=== PATIENT | male | born 2000 | race Caucasian/White ===

== ENCOUNTER 2025-01-13 10:19 | Inpatient (IN) | payer OTHER ==
[~2025-01-13] VITALS: Ht 177.8 cm; Wt 117.2 kg
[2025-01-13 11:47] LABS: BASOPHILS ABSOLUTE AUTO 0.05 K/mm3 (0.00-0.23); BASOPHILS PERCENT AUTO 0 % (0-2); EOSINOPHILS ABSOLUTE AUTO 0.06 K/mm3 (0.00-0.68); EOSINOPHILS PERCENT AUTO 0 % (0-6); Hematocrit 40.3 % (37.0-53.0); Hemoglobin 13.6 g/dL (13.5-17.5); IMMATURE GRAN ABSOLUTE AUTO 0.08 K/mm3 (0.00-0.10); IMMATURE GRAN PERCENT AUTO 0 % (0-1); LYMPHOCYTES ABSOLUTE AUTO 1.52 K/mm3 (0.84-5.20); LYMPHOCYTES PERCENT AUTO 8 % (21-46); MONOCYTES ABSOLUTE AUTO 1.69 K/mm3 (0.16-1.47); MONOCYTES PERCENT AUTO 9 % (4-13); Mean Corpuscular HGB Conc 33.7 g/dL (31.5-36.5); Mean Corpuscular Volume 88 fL (80-100); NEUTROPHILS ABSOLUTE AUTO 15.74 K/mm3 (1.96-9.15); NEUTROPHILS PERCENT AUTO 82 % (41-73); NRBC ABSOLUTE 0.00 K/mm3 (0.00-0.02); NRBC Auto 0.0 /100 WBC (0.0-0.2); Platelet Count 203 K/mm3 (150-400); RDW Coefficient Variation 13.1 % (11.7-14.2); RDW Standard Deviation 41.9 fL (35.1-46.3)
[2025-01-13 11:58] LABS: Alanine Aminotransfer (ALT/SGP 22.0 U/L (12-78); Albumin, Blood 3.8 g/dL (3.4-5.0); Albumin/Globulin Ratio 1.1 (0.8-1.8); Anion Gap 8.0 mmol/L (3-11); Aspartate Aminotrans (AST/SGOT 9.0 U/L (12-37); Bilirubin, Total 0.7 mg/dL (0.1-1.0); Blood Urea Nitrogen 11.0 mg/dL (8-24); CO2, Blood 27.0 mmol/L (21-32); Calcium, Blood 9.1 mg/dL (8.5-10.1); Chloride, Blood 105.0 mmol/L (98-108); Creatinine, Blood 0.75 mg/dL (0.60-1.20); Globulin, Blood 3.5 g/dL (2.2-4.0); Glucose, Blood 127.0 mg/dL (70-99); Potassium, Blood 3.8 mmol/L (3.5-5.5); Sodium, Blood 136.0 mmol/L (136-145); Total Protein, Blood 7.3 g/dL (6.4-8.2)
[2025-01-13] MEDS ORDERED: Morphine Sulfate 4 MG/1 ML Injection IV ONE (12:50)
[2025-01-13] MEDS ORDERED: Vancomycin HCL 2,000 MG in NS 520 ML IV ONE (12:50)
[2025-01-13] MEDS ORDERED: FLU VACC TS2025-26(6MOS UP)/PF 45 MCG/0.5 ML SYRINGE IM SCH (14:20)
[2025-01-13] MEDS ORDERED: Vancomycin (Pharmacy Consult) IV SCH (14:25)
[2025-01-13] MEDS ORDERED: Polyethylene Glycol 3350 17 gm PO PRN (14:25)
[2025-01-13 16:40] VITALS: BP 149/85
--- NOTE | 2025-01-13 16:51 | NUR ---
ADMISSION NOTE: PATIENT ARRIVED TO THE UNIT AT 1645 VIA WHEELCHAIR. ALERT AND ABLE TO SELF TRANSFER ONTO THE BED. SETTLED IN THE ROOM, IV CHECKED, WOUND ASSESSED/PHOTO OBTAINED, AND ASSESSMENT COMPLETED. HE IS IN BED, CALL LIGHT WITHIN REACH, NO SIGNS OR SYMPTOMS OF DISTRESS, PLAN OF CARE ONGOING.
[2025-01-13 19:29] VITALS: BP 137/75
[2025-01-13] MEDS ORDERED: Docusate Sodium/Senna 1 Tab PO SCH (21:00)
[2025-01-13] MEDS ORDERED: Lactobacil 2-S.Thermo-Bifido 1 1 Cap PO SCH (21:00)
[2025-01-14 04:37] VITALS: BP 154/87
[2025-01-14 05:13] LABS: Hematocrit 38.7 % (37.0-53.0); Hemoglobin 12.8 g/dL (13.5-17.5); Mean Corpuscular HGB Conc 33.1 g/dL (31.5-36.5); Mean Corpuscular Volume 89 fL (80-100); NRBC ABSOLUTE 0.00 K/mm3 (0.00-0.02); NRBC Auto 0.0 /100 WBC (0.0-0.2); Platelet Count 180 K/mm3 (150-400); RDW Coefficient Variation 13.0 % (11.7-14.2); RDW Standard Deviation 42.4 fL (35.1-46.3)
[2025-01-14 06:04] LABS: Albumin, Blood 3.3 g/dL (3.4-5.0); Anion Gap 7 mmol/L (3-11); Blood Urea Nitrogen 9 mg/dL (8-24); CO2, Blood 27 mmol/L (21-32); Calcium, Blood 9.0 mg/dL (8.5-10.1); Chloride, Blood 108 mmol/L (98-108); Creatinine, Blood 0.72 mg/dL (0.60-1.20); Glucose, Blood 110 mg/dL (70-99); Magnesium, Blood 1.8 mg/dL (1.6-2.4); Phosphorus, Blood 3.0 mg/dL (2.5-4.9); Potassium, Blood 4.0 mmol/L (3.5-5.5); Sodium, Blood 138 mmol/L (136-145)
--- NOTE | 2025-01-14 06:42 | NUR ---
SHIFT SUMMARY: Pt is admitted for cellulitis and abscess of left inner thigh and is a full code. Is alert and able to make needs known. ADLs have been IND. on ISO for HX of MRSA with current open wound. Denies pain or discomfort when asked. Dressing to thigh is CDI.
[2025-01-14 07:21] VITALS: BP 142/82
[2025-01-14] MEDS ORDERED: Enoxaparin 40 MG/0.4 ML SYR SC SCH (09:00)
[2025-01-14 13:35] LABS: Vancomycin, Trough 9.7 ug/mL (5.0-10.0)
--- NOTE | 2025-01-14 16:52 | NUR ---
SHIFT SUMMARY: PATIENT RECEIVED WOUND CARE TODAY. NEW MARKING MADE FOR INCREASED REDNESS OF L INNER THIGH AND DATED. HOT TO TOUCH AND SWOLLEN. PATIENT STATES THAT IT FEELS BETTER TODAY. PATIENT RECEIVING ANTIBIOTICS AND PAIN MEDICATION NEEDED. HE IS IN HIS ROOM, PLAYING VIDEO GAMES, CALL LIGHT WITHIN REACH, NO SIGNS OR SYMPTOMS OF DISTRESS, PLAN OF CARE ONGOING. PENDING CULTURES.
[2025-01-14 16:56] VITALS: BP 147/104
[2025-01-14 19:33] VITALS: BP 158/93
[2025-01-15 05:34] VITALS: BP 121/75
[2025-01-15 06:42] LABS: BASOPHILS ABSOLUTE AUTO 0.05 K/mm3 (0.00-0.23); BASOPHILS PERCENT AUTO 1 % (0-2); EOSINOPHILS ABSOLUTE AUTO 0.30 K/mm3 (0.00-0.68); EOSINOPHILS PERCENT AUTO 3 % (0-6); Hematocrit 38.3 % (37.0-53.0); Hemoglobin 12.7 g/dL (13.5-17.5); IMMATURE GRAN ABSOLUTE AUTO 0.04 K/mm3 (0.00-0.10); IMMATURE GRAN PERCENT AUTO 0 % (0-1); LYMPHOCYTES ABSOLUTE AUTO 2.32 K/mm3 (0.84-5.20); LYMPHOCYTES PERCENT AUTO 21 % (21-46); MONOCYTES ABSOLUTE AUTO 1.15 K/mm3 (0.16-1.47); MONOCYTES PERCENT AUTO 11 % (4-13); Mean Corpuscular HGB Conc 33.2 g/dL (31.5-36.5); Mean Corpuscular Volume 90 fL (80-100); NEUTROPHILS ABSOLUTE AUTO 7.14 K/mm3 (1.96-9.15); NEUTROPHILS PERCENT AUTO 65 % (41-73); NRBC ABSOLUTE 0.00 K/mm3 (0.00-0.02); NRBC Auto 0.0 /100 WBC (0.0-0.2); Platelet Count 194 K/mm3 (150-400); RDW Coefficient Variation 13.0 % (11.7-14.2); RDW Standard Deviation 42.8 fL (35.1-46.3)
[2025-01-15 07:37] VITALS: BP 139/92
[2025-01-15] MEDS ORDERED: CLINDAMYCIN PHOSPHATE/D5W 50 ML IV SCH (13:48)
[2025-01-15 14:30] LABS: Vancomycin, Trough 14.3 ug/mL (5.0-10.0)
[2025-01-15] MEDS ORDERED: NS 250 ML IV PRN (14:40)
[2025-01-15 16:22] VITALS: BP 143/89
--- NOTE | 2025-01-15 17:48 | NUR ---
SHIFT SUMMARY PT A&OX4, VSS, AMB IND, TOLERATING PO, VOIDING, AND PAIN MANAGED PER EMAR. WOUND CARE/DRESSING CHANGE COMPLETED PER ORDER. REDNESS EXCEEDED BORDER, NEW BORDER DRAWN, NOTIFIED DURING AM ROUND. IV ABX INFUSED. BLOOD AND WOUND CULTURES PENDING. NO OTHER ACUTE CHANGES. CALL LIGHT WITHIN REACH AND PT ABLE TO MAKE NEEDS KNOWN.
[2025-01-15 19:28] VITALS: BP 149/89
--- NOTE | 2025-01-16 03:38 | NUR ---
SHIFT SUMMARY: AOX4. VSS. PT WOUND TO INNER THIGH IS C/D/I. CALL LIGHT IS WITHIN REACH. BED IS LOW AND LOCKED.
[2025-01-16 07:43] VITALS: BP 135/80
[2025-01-16 08:30] LABS: BASOPHILS ABSOLUTE AUTO 0.06 K/mm3 (0.00-0.23); BASOPHILS PERCENT AUTO 1 % (0-2); EOSINOPHILS ABSOLUTE AUTO 0.27 K/mm3 (0.00-0.68); EOSINOPHILS PERCENT AUTO 3 % (0-6); Hematocrit 38.7 % (37.0-53.0); Hemoglobin 12.9 g/dL (13.5-17.5); IMMATURE GRAN ABSOLUTE AUTO 0.03 K/mm3 (0.00-0.10); IMMATURE GRAN PERCENT AUTO 0 % (0-1); LYMPHOCYTES ABSOLUTE AUTO 1.71 K/mm3 (0.84-5.20); LYMPHOCYTES PERCENT AUTO 17 % (21-46); MONOCYTES ABSOLUTE AUTO 1.09 K/mm3 (0.16-1.47); MONOCYTES PERCENT AUTO 11 % (4-13); Mean Corpuscular HGB Conc 33.3 g/dL (31.5-36.5); Mean Corpuscular Volume 88 fL (80-100); NEUTROPHILS ABSOLUTE AUTO 6.73 K/mm3 (1.96-9.15); NEUTROPHILS PERCENT AUTO 68 % (41-73); NRBC ABSOLUTE 0.00 K/mm3 (0.00-0.02); NRBC Auto 0.0 /100 WBC (0.0-0.2); Platelet Count 222 K/mm3 (150-400); RDW Coefficient Variation 12.6 % (11.7-14.2); RDW Standard Deviation 40.8 fL (35.1-46.3)
[2025-01-16 09:01] LABS: Alanine Aminotransfer (ALT/SGP 26.0 U/L (12-78); Albumin, Blood 3.5 g/dL (3.4-5.0); Albumin/Globulin Ratio 1.0 (0.8-1.8); Anion Gap 5.0 mmol/L (3-11); Aspartate Aminotrans (AST/SGOT 17.0 U/L (12-37); Bilirubin, Total 0.4 mg/dL (0.1-1.0); Blood Urea Nitrogen 11.0 mg/dL (8-24); CO2, Blood 28.0 mmol/L (21-32); Calcium, Blood 9.1 mg/dL (8.5-10.1); Chloride, Blood 108.0 mmol/L (98-108); Creatinine, Blood 0.71 mg/dL (0.60-1.20); Globulin, Blood 3.6 g/dL (2.2-4.0); Glucose, Blood 91.0 mg/dL (70-99); Potassium, Blood 4.0 mmol/L (3.5-5.5); Sodium, Blood 137.0 mmol/L (136-145); Total Protein, Blood 7.1 g/dL (6.4-8.2)
--- NOTE | 2025-01-16 09:38 | NUR ---
NOTE PT REPORTS NO PAIN, ONLY WHERE IV HAS BLOWN. PT NOTICES REDNESS WORSENING ON THIGH. , ROUNDED ON PT, REPORTS PT NEEDS POWERGLIDE. AWARE IV VANCO DID NOT INFUSE THIS AM, DOC AWARE. PT REF LOVENOX THIS AM. STRU[employer]URAL [employer] WORKER HELPER NOTIFIED PT NEEDS POWERGLIDE. PT IN BED, BED IN LOWEST POSITION, CALLS APPROPRIATE CALL LIGHT IN REACH.
--- NOTE | 2025-01-16 13:44 | NUR ---
NOTE PT HAD CT OF THIGH TODAY. DR. ROJAS NOTIFIED OF RESULTS. PT HAS POWERGLIDE IN DOROTHY PUT IN BY RENETTA FITZGERALD RN. DR. ROJAS REPORTED "PT WILL CONTINUE WITH IV ANTIBIOTICS, OUTLINE CELLULITIS PLEASE."
[2025-01-16 15:26] VITALS: BP 133/92
--- NOTE | 2025-01-16 18:41 | NUR ---
SHIFT SUMMARY PT A&OX4. PT ADMITTED DUE TO CELLULITIS AND ABSCESS OF L LEG. PT IN CONTACT ISO FOR MRSA. PT INDEPENDENT IN ROOM. PT REPORTS NO CHEST PAIN/SOB. PT REPORTS SOME PAIN AT WOUND SITE, MEDICATED PER EMAR. MEDICATED ONCE WITH VALIUM AND X1 ROXICODONE. CELLULITIS MARKED TODAY DUE TO INCREASE IN REDNESS. PT HAD SHOWER WITH DRESSING OFF PER OK FROM LIBRARIAN. PT WOUND CARE COMPLETE POST SHOWER BY LIBRARIAN. PT CONTINENT. PT EATS ADEQUATE. POWERGLIDE PLACED TODAY. CT COMPLETE AND DR. ROJAS NOTIFIED OF RESULTS. CASE MANAGEMENT INVOLVED WITH GETTING PT RESOURCES. PT GETTING IV VANCO AND ORAL CLEOCIN. PT IN BED, BED IN LOWEST POSITION, BED LOCKED, CALL LIGHT IN REACH.
[2025-01-16 19:14] VITALS: BP 137/85
[2025-01-17 04:50] VITALS: BP 106/63
[2025-01-17 05:30] LABS: BASOPHILS ABSOLUTE AUTO 0.06 K/mm3 (0.00-0.23); BASOPHILS PERCENT AUTO 1 % (0-2); EOSINOPHILS ABSOLUTE AUTO 0.39 K/mm3 (0.00-0.68); EOSINOPHILS PERCENT AUTO 5 % (0-6); Hematocrit 38.8 % (37.0-53.0); Hemoglobin 12.7 g/dL (13.5-17.5); IMMATURE GRAN ABSOLUTE AUTO 0.02 K/mm3 (0.00-0.10); IMMATURE GRAN PERCENT AUTO 0 % (0-1); LYMPHOCYTES ABSOLUTE AUTO 2.20 K/mm3 (0.84-5.20); LYMPHOCYTES PERCENT AUTO 29 % (21-46); MONOCYTES ABSOLUTE AUTO 0.93 K/mm3 (0.16-1.47); MONOCYTES PERCENT AUTO 12 % (4-13); Mean Corpuscular HGB Conc 32.7 g/dL (31.5-36.5); Mean Corpuscular Volume 88 fL (80-100); NEUTROPHILS ABSOLUTE AUTO 4.08 K/mm3 (1.96-9.15); NEUTROPHILS PERCENT AUTO 53 % (41-73); NRBC ABSOLUTE 0.00 K/mm3 (0.00-0.02); NRBC Auto 0.0 /100 WBC (0.0-0.2); Platelet Count 240 K/mm3 (150-400); RDW Coefficient Variation 12.5 % (11.7-14.2); RDW Standard Deviation 41.0 fL (35.1-46.3)
[2025-01-17 05:48] LABS: Alanine Aminotransfer (ALT/SGP 33.0 U/L (12-78); Albumin, Blood 3.4 g/dL (3.4-5.0); Albumin/Globulin Ratio 1.0 (0.8-1.8); Anion Gap 7.0 mmol/L (3-11); Aspartate Aminotrans (AST/SGOT 16.0 U/L (12-37); Bilirubin, Total 0.2 mg/dL (0.1-1.0); Blood Urea Nitrogen 13.0 mg/dL (8-24); CO2, Blood 28.0 mmol/L (21-32); Calcium, Blood 9.0 mg/dL (8.5-10.1); Chloride, Blood 108.0 mmol/L (98-108); Creatinine, Blood 0.73 mg/dL (0.60-1.20); Globulin, Blood 3.5 g/dL (2.2-4.0); Glucose, Blood 93.0 mg/dL (70-99); Potassium, Blood 3.8 mmol/L (3.5-5.5); Sodium, Blood 139.0 mmol/L (136-145); Total Protein, Blood 6.9 g/dL (6.4-8.2)
--- NOTE | 2025-01-17 06:24 | NUR ---
SHIFT SUMMARY A&OX4. ABLE TO MAKE NEEDS KNOWN. TOLERATING VANCOMYCIN INFUSIONS WELL. REDNESS TO LEFT THIGH APPEARS TO BE DECREASING. PT VOICES HIS SATISFACTION WITH THIS AND IS EAGER TO GO HOME SOON POSSIBLE. PT HAD NOT COMPLAINTS OF PAIN DURING SHIFT AND FEELS THIS IS BETTER WELL. PT WAS ABLE TO REST THROUGHOUT THE NIGHT COMFORTABLY. CURRENTLY PT IS RESTING IN HIS BED AT LOWEST POSITION WITH CALL LIGHT WITHIN REACH.
[2025-01-17 07:59] VITALS: BP 145/90
[2025-01-17] MEDS ORDERED: SULTRIDS PO (10:43)
--- NOTE | 2025-01-17 12:13 | NUR ---
DISCHARGE NOTE PT A&OX4. PT REPORTS NO CHEST PAIN/GEN PAIN/SOB. PT GOT IV ANTIBIOTIC THIS AM. PT INDEPENDENT IN ROOM. PT IN ISOLATION FOR MRSA. VSS. PT ESCORTED TO PT ENTERANCE BY WHEELCHAIR. PT TOOK ALL PERSONAL BELONGINGS. FOUNDRY TENDER COMPLETED DISCHARG. BREAK RN WENT OVER DISCHARGE AND INSTRUCTIONS. [facility] POWERGLIDE D/C. PT REPORTS IMPROVED REDNESS AT SITE. BREAK RN DID WOUND CARE.
== END 2025-01-17 12:00 | disposition home or self-care (01) | DRG 872 ==
LOC: ER 10:19 → MEDS 14:17
PROVIDERS: Emergency Medicine; Family Medicine; Hospitalist; ADMIT Internal Medicine
PROC: 0H9JXZZ Drainage of Left Upper Leg Skin, External Approach (ICD-10-PCS; principal; 2025-01-13)
PROC: 3E03329 Introduction of Other Anti-infective into Peripheral Vein, Percutaneous Approach (ICD-10-PCS; 2025-01-13)
PROC: 3E02340 Introduction of Influenza Vaccine into Muscle, Percutaneous Approach (ICD-10-PCS; 2025-01-13)
DX: A41.02 Sepsis due to Methicillin resistant Staphylococcus aureus (principal); L03.116 Cellulitis of left lower limb; L02.416 Cutaneous abscess of left lower limb; A41.9 Sepsis, unspecified organism; F12.90 Cannabis use, unspecified, uncomplicated; F41.9 Anxiety disorder, unspecified; Z88.8 Allergy status to other drugs, medicaments and biological substances; Z23 Encounter for immunization; Z86.14 Personal history of Methicillin resistant Staphylococcus aureus infection
CPT/HCPCS: 10061; 36415; 73701; 80053; 80069; 80202; 83605; 83735; 85025; 85027; 86140; 87040; 87070; 87075; 87077; 87147; 87186; 87205; 96374-59; 96375-59; 99284-25; A9270; J0736; J2270; J3373; J7040; J7050; J7120; Q9967